=== PATIENT | male | born 1990 | race Caucasian/White ===

== ENCOUNTER 2018-04-30 16:30 | Emergency (ER) | payer OTHER ==
--- NOTE | 2018-04-30 16:59 | EDPHY ---
HPI/HX/ROS/PE/MDM Narrative: CHIEF COMPLAINT: Testicular pain HISTORY OF PRESENT ILLNESS: This patient is a 28 year old male complaining of bilateral testicular pain. This has been ongoing for one week and is intermittent. His discomfort is worse on the left and occasionally radiates up towards his abdomen. It is reduced when standing or lying supine. He endorses increased pain when he wears compression shorts. He had similar symptoms in October which resolved on their own. The patient has been cycling frequently and this morning, he tried to ride but the pain was too intense. He called [place] urgent [facility] and was referred to ED for further evaluation. He denies dysuria, no hematuria, no penile discharge. No hematochezia, melena, diarrhea. No new sexual partners. No fever, chills, chest pain, shortness of breath, palpitations, vomiting, diarrhea, urinary complaints, headache, lightheadedness. REVIEW OF SYSTEMS: Aside from elements discussed in the HPI, a comprehensive 10-point review of systems was reviewed and is negative. PAST MEDICAL HISTORY: Bilateral inguinal hernia repair as an . SOCIAL HISTORY: Single. Lives in [place]. Employed. VITAL SIGNS: Reviewed by me GENERAL: Well-developed, well-nourished, resting comfortably in no respiratory distress. HEENT: Benign exam. LUNGS: Clear to auscultation bilaterally, no wheezes, rhonchi or rales. CARDIAC: Regular rate and rhythm, no rubs, murmurs or gallops. ABDOMEN: Soft, nontender, nondistended, bowel sounds normal. No flank tenderness. GENITOURINARY: Tenderness to bilateral testicles and epididymis, left greater than right. Palpable swollen, tortuous varicocele on the posterior aspect of the left testicle. Shotty inguinal adenopathy bilaterally, right greater than left. Normal circumscribed penis. No lesions. BACK: No CVA tenderness. EXTREMITIES: No trauma. No edema. Range of motion is normal throughout. NEURO: Alert and oriented, grossly nonfocal. SKIN: Warm and dry, no rash. PSYCHIATRIC: Normal mentation, no agitation. Portions of this note were transcribed by a medical claims analyst. I personally performed a history, physical exam, medical decision making, and confirmed accuracy of information the transcribed note. ED Course: 28 y/o male presents with bilateral testicular pain. Bilateral testicular and epididymal tenderness, left greater than right. Plan for testicular ultrasound. Plan for UA. Administered 600mg PO ibuprofen for pain relief. 17:[address] Montalvo, radiologist. US bilateral testicles shows left- sided varicocele. 17:47 Reassessed patient. Discussed results. Plan to discharge home in good condition with prescription for Goltry for pain relief. Follow up and return precautions discussed. Referral to urology provided. The patient is comfortable with this plan. MDM: Differential diagnosis of the patient's testicular pain was considered including but not limited to epididymitis, orchitis, hydrocele, varicocele, referred pain from kidney stone, inguinal hernia, and torsion of the testicle. - Data Points Imaging Results: Imaging Impressions Testicular Ultrasound 04/30/18 16:49 Impression: Left-sided varicocele. Findings discussed with Luanne Chaudhary MD 04/30/2018 at 17:32. Imaging: Discussed imaging studies w/ call center professional Radiologist Medications Given: Discontinued Medications Ibuprofen (Motrin) 600 mg PO EDNOW ONE Stop: 04/30/18 17:02 Last Admin: 04/30/18 17:10 Dose: 600 mg General Time Seen by Provider: 04/30/18 16:47 Initial Vital Signs: Initial Vital Signs Temperature (C) 36.7 C 04/30/18 16:41 Heart Rate 48 L 04/30/18 16:41 Respiratory Rate 16 04/30/18 16:41 Blood Pressure 115/87 H 04/30/18 16:41 O2 Sat (%) 98 04/30/18 16:41 O2 Delivery Mode Room Air Allergies/Adverse Reactions: No Known Allergies Allergy (Unverified 04/30/18 16:41) Home Medications: Medication Instructions Recorded Hydrocodone/APAP 5/325 [Goltry 1 tab PO Q6H PRN #10 tab 04/30/18 5/325 (RX)] Departure - Departure Disposition: Home, Routine, Self-Care Clinical Impression: Varicocele, Testicular pain Condition: Good Instructions: Hydrocodone/Acetaminophen (By mouth), Varicocele (ED), Testicle Pain (ED) Additional Instructions: 1. Take ibuprofen as directed on the packaging as needed for pain. Take Goltry as prescribed as needed for severe pain. Do not take Acetaminophen with Hydrocodone (Vicodin, Lortab) or Oycodone (Percocet). These medications also contain Acetaminophen. No more than 3000mg of Acetaminophen should be taken in 24 hours (for an adult). 2. Wear an athletic supported to help reduce pressure and treat your varicocele. 3. Follow up with urology for further evaluation. 4. Return to the emergency department for worsening pain, swelling, fever, or other worsening of condition. Referrals: Oswaldo Abdalla MD [Medical Doctor] - As per Instructions Prescriptions: Hydrocodone/APAP 5/325 [Goltry 5/325 (RX)] 1 tab PO Q6H PRN #10 tab PRN Reason: Pain Report Scribed for: Luanne Chaudhary Report Scribed by: Michelle Cavanaugh Date of Report: 04/30/18 Time of Report: 17:45
[2018-04-30] MEDS ORDERED: IBUPROFEN 600 MG TAB PO ONE (17:01)
[2018-04-30 18:01] VITALS: BP 130/74
== END 2018-04-30 18:01 | disposition home or self-care (01) ==
DX: I86.1 Scrotal varices (principal)